=== PATIENT | female | born 1985 | race Two or more races ===

== ENCOUNTER 2021-02-09 20:27 | Observation (INO) | payer SELFPAY ==
--- NOTE | ~2021-02-09 | CT_ITS ---
EXAMINATION: CTA chest PE abdomen pel DATE: 02/10/2021 11:14 INDICATION: Abdominal and upper chest pain. TECHNIQUE: Computed tomography (CT) pulmonary angiogram of the chest was performed with 100 mL Omnipa que-350 intravenous contrast. Additional 3D reconstructions utilizing coronal maximum intensity proje ction (MIP) were performed. CT of the abdomen and pelvis was performed with intravenous contrast util izing the same contrast bolus following a short delay. The dose-length product was 1760.84 mGy-cm. COMPARISON: None FINDINGS: Chest: Adequate but suboptimal contrast opacification of the pulmonary arteries which only mildly decreases sensitivity for pulmonary emboli in the smaller subsegmental pulmonary arteries. There is mild streak artifact from dense contrast in the superior vena cava and right atrium. Minimal scattered respirato ry motion artifact. No pulmonary embolism. Diffuse mild groundglass opacities throughout both lungs m ost prominent in the dependent lungs. Minimal smooth septal line thickening at the bilateral lung bas es. No pleural effusion. There are few bilateral scattered <4 mm calcified and noncalcified pulmonary nodules, the former along with calcified left hilar and mediastinal lymph nodes consistent with old granulomatous disease.. Heart size is normal. No pericardial effusion. Thoracic aorta is normal in ca liber with no dissection. No pathologically enlarged thoracic lymphadenopathy. Mild thoracic spondylo sis. Abdomen/pelvis: Liver, gallbladder, spleen, pancreas,, right kidney and adrenal gland are normal. A couple left adren al nodules the larger measuring 2.2 cm which demonstrate diagnostic low-attenuation on the earlier ch est portion of the study consistent with adenomas. 6 mm left renal cyst. Bowels are normal. Bladder, anteverted uterus and bilateral adnexa are normal. No free intraperitoneal gas or fluid. No pathologi graeme enlarged abdominal or pelvic lymphadenopathy. Multiple heterotopic ossicles in the subcutaneous fat at the bilateral buttocks likely representing injection granulomata. Minimal lumbar spondylosis. IMPRESSION: 1. No pulmonary embolism or acute intra-abdominal/pelvic process. 2. Diffuse groundglass opacities throughout the lungs with minimal septal line thickening at the lung bases which could represent either atelectasis, mild pulmonary edema or combination thereof. 3. A few <4 mm pulmonary nodules which given patient age and size are most likely benign sequela of o ld granulomatous disease requiring no further follow-up. Reviewed, dictated and finalized at location A. IMPRESSION: 1. No pulmonary embolism or acute intra-abdominal/pelvic process. 2. Diffuse groundglass opacities throughout the lungs with minimal septal line thickening at the lung bases which could represent either atelectasis, mild pul monary edema or combination thereof. 3. A few <4 mm pulmonary nodules which given patient age and size are most like ly benign sequela of old granulomatous disease requiring no further follow-up.
--- NOTE | ~2021-02-09 | US_ITS ---
EXAMINATION: US venous doppler UE RT DATE: 02/10/2021 08:50 INDICATION: Deep venous thrombosis TECHNIQUE: Luther scale images with and without compression and Doppler images of the right upper extre mity veins were obtained. COMPARISON: None. FINDINGS: The right internal jugular vein, subclavian vein, axillary vein, brachial veins, basilic vein, cephal ic vein, radial vein, and ulnar vein are patent.] IMPRESSION: 1. Patent right upper extremity veins. No evidence of deep venous thrombosis. Reviewed, dictated and finalized at location A.
--- NOTE | ~2021-02-09 | XR_ITS ---
EXAMINATION: XR chest 1V portable EXAM DATE: 02/09/2021 21:01 INDICATION: Right upper extremity swelling. Right chest pain into shoulder. TECHNIQUE: Portable AP frontal chest x-ray was obtained. There is no prior study for comparison. FINDINGS: The lungs are clear. There are no pleural effusions. The cardiomediastinal silhouette is within normal limits. There is no pneumothorax suspected. The bones and soft tissues are unremarkab le. IMPRESSION: Unremarkable chest x-ray exam. Reviewed, dictated and finalized at location A.
--- NOTE | 2021-02-09 20:38 | ECG_ITS ---
Measurements Intervals [place] Rate: 106 P: 52 CT: 136 QRS: 20 QRSD: 81 T: 28 QT: 330 QTc: 438 Interpretive Statements SINUS TACHYCARDIA BASELINE ARTIFACT- III, AVL, AVF, V1-V3 ABNORMAL ECG Electronically Signed On 02-10-2021 7:03:33 CDT by Davidson Hoskins D.O.
--- NOTE | 2021-02-09 20:42 | ED.CHESTPAIN ---
HPI - Chest Pain General Chief Complaint: Extremity Injury, Upper Stated Complaint: Chest pain, arm pain Time Seen by Provider: 02/09/21 20:40 Source: patient Mode of arrival: ambulatory Limitations: language barrier History of Present Illness HPI narrative: This [place] woman, who speaks no Lao, comes in with right shoulder pain, and complaints of some mild chest pain. Her right arm and her right hand have been significantly swollen. She says she started having right shoulder pain at about 2 am this morning. She has had ongoing moderately severe to severe pain in her left arm now ongoing. This is associated with left arm edema. Nothing has helped this at home. She reports this as a sharp pain. She comes in because of the constant nature and lack of relief of the left arm pain. She also has apparently mild discomfort in her right and mid chest area associated with her left arm pain. She has had no palpitations, diaphoresis, or nausea associated with this. MD complaint: chest pain Pertinent past history: other (smoker) Onset (ago): hour(s) (19) Timing of current episode: constant Onset: during rest Pain location: parasternal Pain radiation: none Severity: mild Quality: heaviness ( very mild) Relieving factors: nothing Exacerbating factors: nothing Associated symptoms: other (moderately severe right arm pain, and gross swelling of the right arm ) Treatment prior to arrival: none Risk Factors Coronary artery disease risk factors: smoking history Thoracic aortic dissection risk factors: none Related Data Home Medications Medication Instructions Recorded Confirmed aspirin 81 mg PO DAILY 02/09/21 02/09/21 Allergies Allergy/AdvReac Type Severity Reaction Status Date / Time No Known Allergies Allergy Verified 02/09/21 21:04 Review of Systems Constitutional: Constitutional: Reports no additional constitutional complaints Eyes: Eyes: Reports no additional eye complaints ENT: Reports system reviewed and no additional complaints, except as documented Cardiovascular: Cardiovascular: Reports no additional cardiovascular complaints Respiratory: Respiratory: Reports no additional respiratory complaints Gastrointestinal: Gastrointestinal: Reports no additional gastrointestinal complaints Genitourinary: Genitourinary: Reports no additional female genitourinary complaints Musculoskeletal: Musculoskeletal: Reports no additional musculoskeletal complaints Integumentary/Breasts: Skin/Breast: Reports system reviewed and no additional complaints, except as docu Psychiatric: Psychiatric: Reports no additional psychiatric complaints Endocrine: Endocrine: Reports no additional endocrine complaints Hematologic/Lymphatic: Hematologic/Lymphatic: Reports no additional hematologic/lymphatic complaints Allergic/Immunologic: Allergic/Immunologic: Reports no additional allergic/immunologic complaints [facility] Past Medical History Medical History No significant past medical history Surgical History Surgical History History of appendectomy Family History Family History (Updated 02/10/21 @ 01:42 by Micah Tracey MD) Father Family history non-contributory Social History Social History Smoking packs per day: 0.5 Smoking cigarettes per day: 10.0 Smoking status: Current every day smoker Tobacco type: cigarettes Alcohol intake: never Substance use: never Gender identity (if verbalized by the patient): Female Spiritual care concerns: No Exam Const: General: healthy appearing and alert Limitations: language barrier HENMT: Head: normal to inspection Ears: external ears normal and TM abnormal (copious wax bilaterally) General nose exam: Normal external nose present Face and sinus: normal facial exam Mouth: Yes Normal oral and palatal mucosa present
[2021-02-09 20:55] VITALS: BP 147/100; PULSE 104; RESP 20; TEMP 36.7; O2SAT 98
[2021-02-09 21:00] LABS: Basophils Absolute Auto 0.03 K/mm3 (0.00-0.10); Basophils Percent Auto 0.2 % (0.0-1.0); Eosinophils Absolute Auto 0.48 K/mm3 (0.02-0.50); Eosinophils Percent Auto 3.9 % (1.0-6.0); Hematocrit 42.3 % (35.0-49.0); Immature Granulocyte Absolute 0.04 K/mm3 (0.00-0.00); Immature Granulocyte Percent A 0.3 % (0.0-0.0); Lymphocytes Absolute Auto 5.22 K/mm3 (1.10-4.50); Lymphocytes Percent Auto 42.4 % (18.0-42.0); Mean Corpuscular HGB Conc 33.1 g/dL (32.0-36.0); Mean Corpuscular Volume 90.8 fL (78.0-102.0); Mean Platelet Volume 10.9 fl (9.2-11.8); Monocytes Absolute Auto 0.94 K/mm3 (0.10-0.90); Monocytes Percent Auto 7.6 % (2.0-11.0); Neutrophils Absolute Auto 5.6 K/mm3 (1.7-7.2); Neutrophils Percent Auto 45.6 % (50.0-70.0); Platelet Count Result 405 K/mm3 (150-420); Red Blood Count 4.66 M/mm3 (4.20-5.40); Red Cell Distribution Width 12.2 % (11.6-14.4); White Blood Count 12.3 K/mm3 (4.8-10.8)
[2021-02-09 21:12] LABS: Prothrombin Time 10.4 Seconds (9.50-12.10)
[2021-02-09 21:13] LABS: BNP 19.4 pg/mL (0-100)
[2021-02-09 21:15] VITALS: BP 157/94; PULSE 100; RESP 20; O2SAT 96
[2021-02-09 21:17] LABS: Alanine Aminotransferase 35 U/L (14-59); Albumin Level 3.6 g/dL (3.4-5.0); Alkaline Phosphatase 99 U/L (46-116); Anion Gap 12 mmol/L (8-16); Aspartate Amino Transferase 16 U/L (15-37); Bilirubin,Total 0.2 mg/dL (0.00-1.00); Blood Urea Nitrogen 14 mg/dL (7-18); Calcium 8.4 mg/dL (8.5-10.1); Carbon Dioxide 25 mmol/L (21-32); Chloride 103 mmol/L (98-108); Estimated CRCL calculation 68 ml/min; Estimated Glomerular Filt Rate > 60; Glucose 100 mg/dL (70-99); Lactic Acid Reflex 1.2 mmol/L (0.4-2.0); Osmolality Calculated 290 mOsm/kg (285-295); Potassium 3.7 mmol/L (3.5-5.1); Sodium 140 mmol/L (136-145); Total Protein 7.4 g/dL (6.4-8.2)
[2021-02-09 21:17] LABS: D Dimer 0.59 mg/L (0.19-0.50)
[2021-02-09] MEDS: KETOROLAC (*BKC) 60 MG/2 ML VIAL IM (21:58)
[2021-02-09] MEDS: ENOXAPARIN 100 MG/ML SYRINGE SUB-Q (22:07)
[2021-02-09 22:15] VITALS: BP 149/91; PULSE 99; RESP 20; O2SAT 96
--- NOTE | 2021-02-09 22:25 | PC.NURSE ---
2200 EDUCATIONAL TECHNICIAN PHONE USED TO INFORM PT AND HER SISTER SHE WAS BEING ADMITTED AND U/S WILL BE DONE IN THE MORNING TO R/O BLOOD CLOT IN HER ARM CHARGE NURSE ON 2ND FLOOR GAVE PERMISSION FOR SISTER TO STAY WITH PT FOR COMFORT SINCE SISTER DOES NOT SPEAK ANY OMANI
--- NOTE | 2021-02-09 22:30 | ADMGEN ---
This patient, Frieda Stephenson, was admitted to 2nd Floor Room 203-2. Patient/family oriented general routines including ID bracelet, bed, pain management, procedures, bathroom and other care routines, personal items, smoking policy, room service/diet, through [facility] #[id number]. Pt sister is staying with pt for the night. Patient/Family are encouraged to report perceived risks to care and to ask questions if they do not understand what they are told or what they should do.
[2021-02-09 22:31] VITALS: BMI 33.9
[2021-02-09 23:15] VITALS: BP 142/93; PULSE 80; RESP 18; TEMP 37; O2SAT 95
[2021-02-10] VITALS: PULSE 74
--- NOTE | 2021-02-10 01:14 | PC.NURSE ---
pt sleeping, no evidence of distress noted, belongings within reach
--- NOTE | 2021-02-10 03:00 | PC.NURSE ---
pt sleeping, no evidence of distress noted at this time.
[2021-02-10 04:00] VITALS: PULSE 72
[2021-02-10] MEDS: HYDROcodone/acetaminophen (*CRX) 5-325 MG TABLET 1 TAB PO (04:09)
[2021-02-10 04:13] VITALS: BP 101/65; PULSE 78; RESP 20; TEMP 36.5; O2SAT 95
[2021-02-10] MEDS: KETOROLAC 30 MG/ML VIAL (*BKC) IV PUSH (06:04)
[2021-02-10 06:11] LABS: Troponin I 4.5 ng/L (0.00-60.4)
--- NOTE | 2021-02-10 07:15 | PC.NURSE ---
No evidence of pain at this time
[2021-02-10 07:48] VITALS: BP 153/90; PULSE 72; PULSE 75; RESP 18; TEMP 37; O2SAT 95
--- NOTE | 2021-02-10 08:00 | PC.NURSE ---
Venous dopplar of R arm being started, no pain
--- NOTE | 2021-02-10 08:01 | WPDREHABHP ---
H&P: HPI History of Present Illness Date/Time: 02/10/21 08:01 this is a 36-year-old Hebrew woman who does not speak Somali. She denies any past medical history. All information obtained for an tube room cashier. According to patient yesterday at approximate 2 AM she started experiencing chest pain that radiated to her right arm down to her fingers. Patient did admit that approximately 1 month ago she experienced the same pain in her chest she also noted pain to her right arm that extended to her elbow patient noted that pain eventually improved. This particular time she said it actually migrated down to her fingertips where she experienced numbness and was unable to flex her fingers at this time. Patient did report of taking [id number] pain medication with no relief she also used creams to relieve the pain which was not effective. Patient is also having some epigastric pain that she believes to be her gallbladder. The patient denies SOB,, palpitation, extremity, lightheadedness, dizziness, constipation, diarrhea, chills, or fever. Patient WBCs 2.3, platelets 405, hemoglobin 14, hematocrit 42.3, D-dimer 0.59, sodium 140, potassium 3.7, BUN 14, creatinine 0.93, lactic acid 1.2, troponin 4.0--> 4.5, BUN 19.4 chest x-ray unremarkable, EKG sinus tach 106. Patient being admitted to rule out a DVT/PE versus [place]. Patient does complain you to complain of right shoulder pain her chest pains have improved. She did note that her pain is controlled with pain medication. Patient denies any injury. Patient will discharge home today patient agrees that she is stable for discharge she will follow up with the mammogram and her primary care physician. Time sent with patient 60 minutes Condition stable Disposition Home with self-care <IBRAHIMA Bernard - Last Filed: 02/10/21 14:05> Chief Complaint: Chest pain not believed to be cardiac related, right upper arm edema, abdominal pain <IBRAHIMA Bernard - Last Filed: 02/10/21 14:05> Review of Systems Review of Systems Narrative: A 14 organ system Review of Systems was performed and pertinent positives included in the HPI, otherwise remaining ROS is negative. <IBRAHIMA Bernard - Last Filed: 02/10/21 14:05> [facility] Past Medical History Medical History: Medical History No significant past medical history <IBRAHIMA Bernard - Last Filed: 02/10/21 14:05> Surgical History Surgical History: Surgical History History of appendectomy <IBRAHIMA Bernard - Last Filed: 02/10/21 14:05> Family History Family History: Family History Father Family history non-contributory <IBRAHIMA Bernard - Last Filed: 02/10/21 14:05> Social History Social History: Social History Smoking packs per day: 0.5 Smoking cigarettes per day: 10.0 Smoking status: Current every day smoker Tobacco type: cigarettes Alcohol intake: never Substance use: never Gender identity (if verbalized by the patient): Female Spiritual care concerns: No <IBRAHIMA Bernard - Last Filed: 02/10/21 14:05> Meds Home Medications and Allergies Home medications: Home Medications Medication Instructions Recorded Confirmed Type aspirin 81 mg PO DAILY 02/09/21 02/09/21 History hydrocodone-acetaminophen 1 tablet PO Q6H PRN #15 tablet 02/10/21 Rx <IBRAHIMA Bernard - Last Filed: 02/10/21 14:05> Allergies/Adverse reactions: Allergies Allergy/AdvReac Type Severity Reaction Status Date / Time No Known Allergies Allergy Verified 02/09/21 21:04 <IBRAHIMA Bernard - Last Filed: 02/10/21 14:05> Vital Signs Vital Signs - 24 hr 02/09/21 20:55 02/09/21 21:15 02/09/21 22:15 Temperature 98.1 F Pu
[2021-02-10] MEDS: ENOXAPARIN 100 MG/ML SYRINGE SUB-Q (08:48)
[2021-02-10] MEDS: PANTOPRAZOLE SODIUM IV 40 MG VIAL IV PUSH (08:49)
--- NOTE | 2021-02-10 08:58 | PC.NURSE ---
No DVT, awaiting CTA to be done, no pain voiced
--- NOTE | 2021-02-10 09:25 | PC.NURSE ---
Tele bobbin collector used to get consent for CTA chest to rule out clot, consent obtained
--- NOTE | 2021-02-10 10:27 | PC.NURSE ---
To CT for CTA chest/abd, no pain
--- NOTE | 2021-02-10 11:30 | PC.NURSE ---
No pain, full ROM to hand, awaiting CT results
[2021-02-10 12:00] VITALS: PULSE 100
--- NOTE | 2021-02-10 12:27 | PC.NURSE ---
No pain, full rom to hand noted, states good
[2021-02-10 12:43] LABS: Basophils Absolute Auto 0.03 K/mm3 (0.00-0.10); Basophils Percent Auto 0.3 % (0.0-1.0); Eosinophils Absolute Auto 0.24 K/mm3 (0.02-0.50); Eosinophils Percent Auto 2.3 % (1.0-6.0); Hematocrit 43.2 % (35.0-49.0); Hemoglobin 13.9 g/dL (12.0-15.0); Immature Granulocyte Absolute 0.03 K/mm3 (0.00-0.00); Immature Granulocyte Percent A 0.3 % (0.0-0.0); Lymphocytes Absolute Auto 3.53 K/mm3 (1.10-4.50); Lymphocytes Percent Auto 33.6 % (18.0-42.0); Mean Corpuscular HGB Conc 32.2 g/dL (32.0-36.0); Mean Corpuscular Hemoglobin 29.3 pg (27.0-31.0); Mean Corpuscular Volume 91.1 fL (78.0-102.0); Mean Platelet Volume 10.9 fl (9.2-11.8); Monocytes Absolute Auto 0.46 K/mm3 (0.10-0.90); Monocytes Percent Auto 4.4 % (2.0-11.0); Neutrophils Absolute Auto 6.2 K/mm3 (1.7-7.2); Neutrophils Percent Auto 59.1 % (50.0-70.0); Platelet Count Result 389 K/mm3 (150-420); Red Blood Count 4.74 M/mm3 (4.20-5.40); Red Cell Distribution Width 11.9 % (11.6-14.4); White Blood Count 10.5 K/mm3 (4.8-10.8)
[2021-02-10 12:58] LABS: Alanine Aminotransferase 32 U/L (14-59); Albumin Level 3.5 g/dL (3.4-5.0); Alkaline Phosphatase 79 U/L (46-116); Anion Gap 10 mmol/L (8-16); Aspartate Amino Transferase 16 U/L (15-37); Bilirubin,Total 0.6 mg/dL (0.00-1.00); Blood Urea Nitrogen 14 mg/dL (7-18); Calcium 8.5 mg/dL (8.5-10.1); Carbon Dioxide 24 mmol/L (21-32); Chloride 104 mmol/L (98-108); Estimated CRCL calculation 91 ml/min; Estimated Glomerular Filt Rate > 60; Glucose 120 mg/dL (70-99); Osmolality Calculated 287 mOsm/kg (285-295); Sodium 138 mmol/L (136-145); Total Protein 7.3 g/dL (6.4-8.2)
[2021-02-10 13:10] LABS: Beta HCG Quantitative < 1.00 mIU/mL (0-6)
--- NOTE | 2021-02-10 13:25 | PC.NURSE ---
Awaiting CTA report, no pain at this time, sister at the bedside
--- NOTE | 2021-02-10 13:58 | PC.NURSE ---
saline lock removed, tolerated well
--- NOTE | 2021-02-10 14:00 | PC.NURSE ---
Discharge ambulatory to home with sister and son, verified dc instructions with son
--- NOTE | 2021-02-15 14:29 | PC.NURSE ---
Unable to contact for discharge call back.
== END 2021-02-10 14:00 | disposition home or self-care (01) ==
LOC: CHSED 20:40 → CHS2ND 22:04
PROVIDERS: Family Medicine; Admitting Provider Emergency Medicine; Emergency Provider Emergency Medicine; Visit Provider Emergency Medicine
DX: M25.511 Pain in right shoulder (principal); M79.601 Pain in right arm; M79.602 Pain in left arm; M79.89 Other specified soft tissue disorders; R10.13 Epigastric pain; R59.0 Localized enlarged lymph nodes; N63.11 Unspecified lump in the right breast, upper outer quadrant; R07.9 Chest pain, unspecified; F17.210 Nicotine dependence, cigarettes, uncomplicated
CPT/HCPCS: 36415; 71045; 71275; 74177; 80053; 83605; 83880; 84484; 84702; 85025; 85380; 85610; 85730; 86850; 86900; 86901; 93005; 93971; 96372; 96374; 96375; 99285; A9270; C9113; G0378; G0379; J1650; J1885; Q9967